=== PATIENT | male | born 1985 | race American Indian/Alaskan Native ===

== ENCOUNTER 2016-11-10 12:20 | Emergency (ER) | payer SELFPAY ==
[2016-11-10 12:47] VITALS: BP 131/86
[2016-11-10] MEDS ORDERED: XYLOCAINE 1% MPF 5 mL ONE ×2 (13:16→14:01)
[2016-11-10] MEDS ORDERED: ANCEF IM ONE (13:17)
[2016-11-10] MEDS ORDERED: BOOSTRIX IM ONE (13:17)
[2016-11-10] MEDS ORDERED: XYLOCAINE 1% 20 mL INFILTRATI ONE (13:17)
[2016-11-10] MEDS ORDERED: MOTRIN PO ONE (13:17)
--- NOTE | 2016-11-10 13:18 | Emergency Department Report ---
- General Chief Complaint: Laceration/Recheck/Suture Stated Complaint: RT ARM INJURY Time Seen by Provider: 11/10/16 13:16 Source: patient Mode of arrival: Ambulatory Limitations: No Limitations - History of Present Illness Initial Comments: Patient reports that he suffered a 3 inch laceration to his right upper forearm from a metal plenum while installing a heating/air conditioner unit today Onset/Timin -: hour(s) Location: other (right upper forearm) Extremity Location: Right: Forearm Place: work Patient Tetanus UTD: No Context: accidental Associated Symptoms: pain. denies: loss of feeling/numbness, suspect foreign body present, unable to move injured part, weakness followed by dizziness Treatments Prior to Arrival: bandage - Related Data Previous Rx's Medication Instructions Recorded Last Taken Type HYDROcodone/APAP 5-325 [[place] 1 each PO Q6HR PRN #8 tablet 11/10/16 Unknown Rx 5/325] Allergies Allergy/AdvReac Type Severity Reaction Status Date / Time No Known Allergies Allergy Verified 11/10/16 13:22 ED Review of Systems ROS: Stated complaint: RT ARM INJURY Other details as noted in HPI Constitutional: denies: chills, diaphoresis, fever, malaise, weakness Respiratory: denies: cough, orthopnea, shortness of breath, SOB with exertion, SOB at rest, stridor, wheezing Cardiovascular: denies: chest pain, palpitations, dyspnea on exertion, orthopnea , edema, syncope, paroxysmal nocturnal dyspnea Musculoskeletal: denies: back pain, joint swelling, arthralgia, myalgia Skin: other (3 inch to right upper forearm). denies: rash, lesions, change in color, change in hair/nails, pruritus Neurological: denies: headache, weakness, numbness, paresthesias, confusion, abnormal gait, vertigo Hematological/Lymphatic: denies: easy bleeding, easy bruising, swollen glands ED Past Medical Hx - Past Medical History Previous Medical History?: No - Surgical History Past Surgical History?: Yes Additional Surgical History: [facility] surgery 2004 - Social History Smoking Status: Never Smoker Substance Use Type: None - Medications Home Medications: Home Medications Medication Instructions Recorded Confirmed Last Taken Type HYDROcodone/APAP 5-325 [[place] 1 each PO Q6HR PRN #8 tablet 11/10/16 Unknown Rx 5/325] ED Physical Exam - General Limitations: No Limitations General appearance: alert, in no apparent distress - Head Head exam: Present: atraumatic - ENT ENT exam: Present: normal exam, mucous membranes moist. Absent: mucous membranes dry - Respiratory Respiratory exam: Present: normal lung sounds bilaterally. Absent: respiratory distress, wheezes, rales, rhonchi, stridor, chest wall tenderness, accessory muscle use, decreased breath sounds, prolonged expiratory - Cardiovascular Cardiovascular Exam: Present: regular rate, normal rhythm, normal heart sounds. Absent: systolic murmur, diastolic murmur, rubs, gallop, clicks, JVD, S3 - Expanded Upper Extremity Exam Right Elbow exam: Present: normal inspection, full ROM Forearm Wrist exam: Present: full ROM, tenderness, laceration (3 inch to right upper forearm). Absent: swelling, abrasion, ecchymosis, deformity, crepidus, dislocation, erythema, tenderness over anatomical snuff box, pain with axial thumb loading Hand Wrist exam: Present: normal inspection, full ROM Neuro motor exam: Present: wrist extension intact, thumb opposition intact, thumb IP flexion intact, thumb adduction intact, fingers 2-5 abduction intact Neurosensory exam: Present: 2-point discrimination, radial nerve intact, ulnar nerve intact, median nerve intact Vascular: Present: normal capillary refill, radial pulse (2+), brachial pulse (2 +), ulnar pulse (2+). Absent: vascular compromise, Pallo, pulse deficit radial art, pulse deficit ulnar art, pulse deficit brachial art - Back Exam Back exam: Present: normal inspection, full ROM - Neurological Exam Neurological exam: Present: alert, oriented X3, CN II-XII intact, normal gait, reflexes normal. Absent: motor sensory deficit - Skin Skin exam: Present: warm, dry, intact, normal color. Absent: rash ED Course Vital Signs 11/10/16 12:43 Temperature 98.0 F Pulse Rate 87 Respiratory 20 Rate Blood Pressure 131/86 O2 Sat by Pulse 98 Oximetry - Reevaluation(s) Reevaluation #1: 11/10/16 13:35 radiology study, te - Laceration /Wound Repair Right Upper Arm Wound Location: upper extremity (right upper forearm) Wound Explored: clean Irrigated w/ Saline (ccs): 400 Betadine Prep?: Yes Anesthesia: 1% Lidocaine Volume Anesthetic (ccs): 8 Wound Debrided: minimal Wound Repaired With: sutures Suture Size/Type: 4:0, nylon Number of Sutures: 8 Layer Closure?: Yes Sterile Dressing Applied?: Yes Progress: Patient tolerated the procedure well ED Medical Decision Making - Lab Data Vital Signs 11/10/16 12:43 Temperature 98.0 F Pulse Rate 87 Respiratory 20 Rate Blood Pressure 131/86 O2 Sat by Pulse 98 Oximetry - Differential Diagnosis Laceration Right FA, Fracture Right FA Critical care attestation.: If time is entered above; I have spent that time in minutes in the direct care of this critically ill patient, excluding procedure time. ED Disposition Clinical Impression: Laceration of right upper arm Qualifiers: Encounter type: initial encounter Qualified Code(s): S41.111A - Laceration without foreign body of right upper arm, initial encounter Disposition: DISCHARGED TO HOME OR SELFCARE Is pt being admited?: No Does the pt Need Aspirin: No Condition: Stable Instructions: Laceration (ED), Suture Care (ED) Additional Instructions: Take medication as directed. No drinking or driving while taking medication. Keep the wound clean, dry and covered. Follow up in the ED for suture removal in 8-10 days. Prescriptions: HYDROcodone/APAP 5-325 [[place] 5/325] 1 each PO Q6HR PRN #8 tablet PRN Reason: Pain Referrals: PRIMARY CARE, [Primary Care Provider] - 3-5 Days [facility] [Outside] - 3-5 Days Forms: Work/School Release Form(ED) Time of Disposition: 15:25
[2016-11-10] MEDS ORDERED: XYLOCAINE 1% MPF 5 mL INFILTRATI ONE ×2 (13:23→14:08)
[2016-11-10] MEDS ORDERED: WATER FOR INJ (PF) 10 ML ONE (13:24)
--- NOTE | 2016-11-10 13:39 | XRay Report ---
RIGHT FOREARM: AP and lateral views of the forearm demonstrate normal mineralization and contours for this patient's age. No fracture or joint pathology is appreciated. Soft tissue injury or laceration is suspected near the antecubital fossa. No radiopaque foreign body is appreciated. IMPRESSION: Soft tissue injury as described.
[2016-11-10] MEDS ORDERED: NACL 0.9% 500 ML IR ONE (14:01)
[2016-11-10] MEDS ORDERED: NACL 0.9% IR ONE (14:04)
[2016-11-10] MEDS ORDERED: TRIPLE ANTIBIOTIC TP ONE (15:18)
== END 2016-11-10 15:46 | disposition home or self-care (01) ==
LOC: ED 12:20
DX: S41.111A Laceration without foreign body of right upper arm, initial encounter (principal); W31.89XA Contact with other specified machinery, initial encounter; Y93.89 Activity, other specified; Y99.9 Unspecified external cause status; Y92.89 Other specified places as the place of occurrence of the external cause
CPT/HCPCS: 12004; 73090; 90471; 90715; 96372; 99283; J0690; A6250

== ENCOUNTER 2016-11-19 13:43 | Emergency (ER) | payer SELFPAY ==
[2016-11-19 14:11] VITALS: BP 120/87
--- NOTE | 2016-11-19 15:21 | Emergency Department Report ---
Suture/Staple Removal - HPI Chief Complaint: Laceration/Recheck/Suture Stated Complaint: STITCHES REMOVED Time Seen by Provider: 11/19/16 14:55 When Sutures or [place] Placed: 8-10 Days Ago Wound Location: R FA ED Review of Systems ROS: Stated complaint: STITCHES REMOVED Other details as noted in HPI Constitutional: denies: chills, fever Skin: other (denies pain and drainage from suture site ). denies: change in color ED Past Medical Hx - Past Medical History Additional medical history: [facility] - Surgical History Additional Surgical History: [facility] surgery 2004 - Social History Smoking Status: Never Smoker Substance Use Type: None - Medications Home Medications: Home Medications Medication Instructions Recorded Confirmed Last Taken Type HYDROcodone/APAP 5-325 [[place] 1 each PO Q6HR PRN #8 tablet 11/10/16 Unknown Rx 5/325] Suture Removal Exam - Exam General: Vital signs noted. No distress. Alert and acting appropriately. Wound: No Pathologic Erythema (local inflamation around suture site), No Tenderness, No Drainage, No Pus, No Wound Dehiscence Other Systems: All other systems reviewed and are unremarkable. ED Course Vital Signs 11/19/16 14:08 Temperature 98.6 F Pulse Rate 64 Respiratory 18 Rate Blood Pressure 120/87 O2 Sat by Pulse 99 Oximetry - Reevaluation(s) Reevaluation #1: 11/19/16 15:25 8 sutures removed from pt's R forearm. PT tolerated the procedure well, no wound dehiscence. suture site covered in steristrips - Pulse Oximetry Interpretation Digit-Finger Initial Pulse Oximetry Readin Actions Taken: none ED Recheck MDM - Differential Diagnosis Wound Recheck, Suture/Staple Removal Critical care attestation.: If time is entered above; I have spent that time in minutes in the direct care of this critically ill patient, excluding procedure time. ED Disposition Clinical Impression: Visit for suture removal Disposition: DISCHARGED TO HOME OR SELFCARE Is pt being admited?: No Does the pt Need Aspirin: No Condition: Stable Instructions: Suture Removal (ED) Additional Instructions: To prevent scar - avoid sun exposure. Cover laceration site with sun protection daily You can use OTC Mederma or topical collagen patches for scar treatment - wait for all of the scabs to heal Referrals: PRIMARY CARE, [Primary Care Provider] - 3-5 Days Forms: Work/School Release Form(ED) Time of Disposition: 15:28
== END 2016-11-19 15:32 | disposition home or self-care (01) ==
LOC: ED 13:43
DX: Z48.02 Encounter for removal of sutures (principal); Z53.21 Procedure and treatment not carried out due to patient leaving prior to being seen by health care provider

== ENCOUNTER 2020-05-28 12:28 | Emergency (ER) | payer SELFPAY ==
[2020-05-28 15:11] VITALS: BP 126/64
[2020-05-28] MEDS ORDERED: KETOROLAC 10 MG TAB PO ONE (16:55)
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
== END 2020-05-28 18:13 | disposition home or self-care (01) ==
LOC: ED 12:28
DX: S29.012A Strain of muscle and tendon of back wall of thorax, initial encounter (principal); Z98.890 Other specified postprocedural states; V89.2XXA Person injured in unspecified motor-vehicle accident, traffic, initial encounter; Y93.89 Activity, other specified; Y92.410 Unspecified street and highway as the place of occurrence of the external cause; Y99.8 Other external cause status
CPT/HCPCS: 72070; 99283